=== PATIENT | male | born 1980 | race Caucasian/White ===

== ENCOUNTER 2020-01-29 06:57 | Outpatient (NON) | payer OTHER, SELFPAY ==
[2020-01-29 22:42] LABS: SARS-CoV-2 RNA PCR Negative
== END 2020-01-29 06:58 ==
LOC: ANHCOVIDDT 06:58
PROVIDERS: PCP Family Medicine; Visit Provider Physician Assistant
DX: R50.9 Fever, unspecified (principal); Z20.828 Contact with and (suspected) exposure to other viral communicable diseases
CPT/HCPCS: 87635; C9803; U0003

== ENCOUNTER 2020-08-13 14:34 | Outpatient (CLI) | payer OTHER, SELFPAY ==
[2020-08-13 16:23] LABS: Anion Gap 9 mmol/L (8-16); Blood Urea Nitrogen 15 mg/dL (9-20); Calcium 10.2 mg/dL (8.4-10.2); Carbon Dioxide 29 mmol/L (22-30); Chloride 103 mmol/L (98-107); Estimated Glomerular Filt Rate > 60; Glucose 78 mg/dL (75-110); HDL Direct 62 mg/dL; Potassium 4.1 mmol/L (3.4-5.0); Sodium 141 mmol/L (137-145)
[2020-08-13 16:33] LABS: LDL Cholesterol Direct 100 mg/dL
[2020-08-13 16:55] LABS: Creatinine Urine 228.2 mg/dL
[2020-08-13 17:31] LABS: MALB Creatinine Ratio < 2.6 mg/g (0-30); Microalbumin Urine Random < 6.0 mg/L (0-16.7)
== END 2020-08-13 14:35 | disposition home or self-care (01) ==
LOC: ANHWCLAB 14:36
PROVIDERS: PCP Family Medicine; Visit Provider Internal Medicine Endocrinology, Diabetes & Metabolism
DX: E10.9 Type 1 diabetes mellitus without complications (principal)
CPT/HCPCS: 36415; 80048; 82043; 83718; 83721; 84443

== ENCOUNTER 2021-07-29 14:11 | Outpatient (CLI) | payer OTHER, SELFPAY ==
[2021-07-29 16:45] LABS: Anion Gap 6 mmol/L (8-16); Blood Urea Nitrogen 23 mg/dL (9-20); Calcium 9.2 mg/dL (8.4-10.2); Carbon Dioxide 30 mmol/L (22-30); Chloride 100 mmol/L (98-107); Estimated Glomerular Filt Rate > 60; Glucose 265 mg/dL (65-110); HDL Direct 55 mg/dL; Potassium 4.3 mmol/L (3.4-5.0); Sodium 136 mmol/L (137-145)
[2021-07-29 17:02] LABS: LDL Cholesterol Direct 92 mg/dL
[2021-07-29 17:16] LABS: Creatinine Urine 269.5 mg/dL
[2021-07-29 17:20] LABS: MALB Creatinine Ratio 7.1 mg/g (0-30); Microalbumin Urine Random 19.2 mg/L (0-16.7)
== END 2021-07-29 14:12 | disposition home or self-care (01) ==
LOC: ANHWCLAB 14:14
PROVIDERS: PCP Family Medicine; Visit Provider Internal Medicine Endocrinology, Diabetes & Metabolism
DX: E10.9 Type 1 diabetes mellitus without complications (principal)
CPT/HCPCS: 36415; 80048; 82043; 83718; 83721; 84443